=== PATIENT | female | born 1950 | race Caucasian/White ===

== ENCOUNTER → 2018-10-28 | Outpatient (CLI) | payer MEDICARE, BC ==
--- NOTE | 2018-11-01 09:54 | MM ---
Reason for exam: screening (asymptomatic). Last mammogram was performed 1 year and 3 months ago. History: Patient is postmenopausal. Physical Findings: A clinical breast exam by your physician is recommended on an annual basis and results should be correlated with mammographic findings. MG 3D Screening Mammo W/Cad Bilateral CC and MLO view(s) were taken. Prior study comparison: August 10, 2017, mammogram, performed at [facility]. October 02, 2016, mammogram, performed at [facility]. The breast tissue is heterogeneously dense. This may lower the sensitivity of mammography. There are benign appearing round calcifications bilaterally. There is no discrete abnormality. Left axillary pacemaker. ASSESSMENT: Benign, BI-RAD 2 RECOMMENDATION: Routine screening mammogram of both breasts in 1 year.
== END | disposition home or self-care (01) ==
LOC: RADMAMWWP 10:05
PROVIDERS: ATTEND Family Medicine
DX: Z12.31 Encounter for screening mammogram for malignant neoplasm of breast (principal)
CPT/HCPCS: 77063; 77067

== ENCOUNTER → 2019-12-21 | Outpatient (CLI) | payer MEDICARE, BC ==
--- NOTE | 2019-12-25 10:16 | MM ---
Reason for exam: screening (asymptomatic). Last mammogram was performed 1 year and 2 months ago. History: Patient is postmenopausal. Physical Findings: A clinical breast exam by your physician is recommended on an annual basis and results should be correlated with mammographic findings. MG 3D Screening Mammo W/Cad Bilateral CC and MLO view(s) were taken. XCCL view(s) were taken of the right breast. Prior study comparison: October 28, 2018, bilateral MG 3d screening mammo w/cad. August 10, 2017, mammogram, performed at [facility]. The breast tissue is heterogeneously dense. This may lower the sensitivity of mammography. Benign appearing bilateral calcifications. No significant changes when compared with prior studies. ASSESSMENT: Benign, BI-RAD 2 RECOMMENDATION: Routine screening mammogram of both breasts in 1 year.
== END | disposition home or self-care (01) ==
LOC: RADMAMWWP 12:31
PROVIDERS: ATTEND Family Medicine
DX: Z12.31 Encounter for screening mammogram for malignant neoplasm of breast (principal)
CPT/HCPCS: 77063; 77067

== ENCOUNTER 2020-06-09 01:42 | Emergency (ER) | payer MEDICARE, BC ==
[2020-06-09 01:48] VITALS: TEMP 98
[2020-06-09] MEDS ORDERED: diphenhydrAMINE 50 MG/ML 1 ML VIAL IVP STA (01:58)
[2020-06-09] MEDS ORDERED: methylPREDNISolone SOD SUCCI 125 MG/2 ML VIAL IV STA (01:58)
[2020-06-09] MEDS ORDERED: SODIUM CHLORIDE 0.9% 1,000 ML IV STA (01:58)
--- NOTE | 2020-06-09 02:03 | ED ---
ENT HPI - General Chief complaint: ENT Stated complaint: Swollen Tongue Time Seen by Provider: 06/09/20 01:55 Source: patient, RN notes reviewed Mode of arrival: ambulatory Limitations: no limitations - History of Present Illness Initial comments: Patient is a 69-year-old female that presents to the emergency department with tongue swelling. She notes that this happened after she woke up look in the mirrorher tongue was swollen. She noted that it is increasingly more difficult to talk and swallow. She notes that she can swallow her own saliva with some difficulty. She also does note that she does take lisinopril on a regular basis but has never had an ALLERGIC reaction or reaction up until this point. She was sitting up in bed in mild distress but did not appear to be in any pain. She was a well-appearing 69-year-old female. She denied any chest pain shortness of breath headache nausea vomiting diarrhea constipation fever fatigue chills. - Related Data Previous Rx's Medication Instructions Recorded Famotidine [Pepcid] 20 mg PO BID #28 tablet 06/09/20 predniSONE 50 mg PO DAILY #5 tab 06/09/20 Allergies Allergy/AdvReac Type Severity Reaction Status Date / Time morphine Allergy Unknown Verified 06/09/20 01:48 Penicillins Allergy Unknown Verified 06/09/20 01:48 Review of Systems ROS Statement: Those systems with pertinent positive or pertinent negative responses have been documented in the HPI. ROS Other: All systems not noted in ROS Statement are negative. Past Medical History Past Medical History: Hypertension, Thyroid Disorder Additional Past Medical History / Comment(s): Tremors History of Any Multi-Drug Resistant Organisms: None Reported Additional Past Surgical History / Comment(s): Impplants in head for tremors. Past Psychological History: No Psychological Hx Reported Smoking Status: Never smoker Past Alcohol Use History: None Reported Past Drug Use History: None Reported General Exam Limitations: no limitations General appearance: alert, in no apparent distress Head exam: Present: atraumatic, normocephalic, normal inspection Eye exam: Present: normal appearance, PERRL, EOMI. Absent: scleral icterus, conjunctival injection, periorbital swelling ENT exam: Present: mucous membranes moist. Absent: normal exam (Inferior aspect of tongue around the lingual frenulum swollen.) Neck exam: Present: normal inspection. Absent: tenderness, meningismus, lymphadenopathy Respiratory exam: Present: normal lung sounds bilaterally. Absent: respiratory distress, wheezes, rales, rhonchi, stridor Cardiovascular Exam: Present: regular rate, normal rhythm, normal heart sounds. Absent: systolic murmur, diastolic murmur, rubs, gallop, clicks GI/Abdominal exam: Present: soft, normal bowel sounds. Absent: distended, tenderness, guarding, rebound, rigid Extremities exam: Present: normal inspection, full ROM, normal capillary refill. Absent: tenderness, pedal edema, joint swelling, calf tenderness Neurological exam: Present: alert, oriented X3, CN II-XII intact Psychiatric exam: Present: normal affect, normal mood Skin exam: Present: warm, dry, intact, normal color. Absent: rash Course Vital Signs 06/09/20 01:46 Temperature 98 F Pulse Rate 102 H Respiratory 18 Rate O2 Sat by Pulse 95 Oximetry Medical Decision Making - Medical Decision Making 59-year-old female complaining of tongue swelling. Labs, 50 g Benadryl, 125 mg of Solu-Medrol, 0.3 mg epinephrine, 1 L normal saline ordered. Labs unremarkable Upon reevaluation patient states that she is feeling much better having an easier time swallowing and feels like her tongue his head reduce swelling. case discussed with Dr. Islas, patient discharge home. - Lab Data Result diagrams: 06/09/20 02:19 06/09/20 02:19 Lab Results 06/09/20 06/09/20 Range/Units 02:19 02:19 WBC 8.8 (3.8-10.6) k/uL RBC 3.96 (3.80-5.40) m/uL Hgb 11.9 (11.4-16.0) gm/dL Hct 36.7 (34.0-46.0) % MCV 92.7 (80.0-100.0) fL MCH 30.0 (25.0-35.0) pg MCHC 32.4 (31.0-37.0) g/dL RDW 13.5 (11.5-15.5) % Plt Count 93 L (150-450) k/uL MPV 13.3 Neutrophils % 56 % Lymphocytes % 33 % Monocytes % 5 % Eosinophils % 3 % Basophils % 1 % Neutrophils # 4.9 (1.3-7.7) k/uL Lymphocytes # 2.9 (1.0-4.8) k/uL Monocytes # 0.4 (0-1.0) k/uL Eosinophils # 0.3 (0-0.7) k/uL Basophils # 0.1 (0-0.2) k/uL Sodium 141 (137-145) mmol/L Potassium 3.9 (3.5-5.1) mmol/L Chloride 106 (98-107) mmol/L Carbon Dioxide 28 (22-30) mmol/L Anion Gap 7 mmol/L BUN 22 H (7-17) mg/dL Creatinine 0.88 (0.52-1.04) mg/dL Est GFR (CKD-EPI)AfAm 78 (>60 ml/min/1.73 sqM) Est GFR (CKD-EPI)NonAf 68 (>60 ml/min/1.73 sqM) Glucose 108 H (74-99) mg/dL Calcium 8.7 (8.4-10.2) mg/dL Disposition Clinical Impression: Allergic reaction, Tongue swelling Disposition: HOME SELF-CARE Condition: Stable Instructions (If sedation given, give patient instructions): General Allergic Reaction (ED), Angioedema (ED) Additional Instructions: Please return to the Emergency Department if symptoms worsen or any other concerns. Take prescriptions as prescribed. Follow-up with primary care in 1-2 days discuss potentially changing blood pressure medication. Eat and drink as tolerated until swelling reduces. Is patient prescribed a controlled substance at d/c from ED?: No Referrals: Iveth Ruiz DO [Primary Care Provider] - 1-2 days Time of Disposition: 02:57
[2020-06-09 02:36] LABS: Basophils # (A) 0.1 k/uL (0-0.2); Basophils % (A) 1 %; Eosinophils # (A) 0.3 k/uL (0-0.7); Eosinophils % (A) 3 %; HCT 36.7 % (34.0-46.0); HGB 11.9 gm/dL (11.4-16.0); Lymphocytes # (A) 2.9 k/uL (1.0-4.8); Lymphocytes % (A) 33 %; MCHC 32.4 g/dL (31.0-37.0); MCV 92.7 fL (80.0-100.0); Mean Platelet Volume 13.3; Monocytes # (A) 0.4 k/uL (0-1.0); Monocytes % (A) 5 %; Neutrophils # (A) 4.9 k/uL (1.3-7.7); Neutrophils % (A) 56 %; RBC 3.96 m/uL (3.80-5.40); RDW 13.5 % (11.5-15.5); WBC 8.8 k/uL (3.8-10.6)
[2020-06-09 02:38] LABS: Platelet Count 93 k/uL (150-450)
[2020-06-09 02:48] LABS: Calcium 8.7 mg/dL (8.4-10.2); Potassium 3.9 mmol/L (3.5-5.1)
[2020-06-09 03:29] VITALS: BP 148/91; PULSE 75; RESP 20
== END 2020-06-09 03:10 | disposition home or self-care (01) ==
LOC: EC 01:42
DX: T78.40XA Allergy, unspecified, initial encounter (principal); T46.4X5A Adverse effect of angiotensin-converting-enzyme inhibitors, initial encounter; I10 Essential (primary) hypertension
CPT/HCPCS: 36415; 80048; 85025; 99283; 96374; 96375; 96372; J0171; J1200; J2930; 96365

== ENCOUNTER 2022-06-30 09:05 | Day surgery (SDC) | payer MEDICARE ==
[~2022-06-30 09:05] MED LIST: LACTATED RINGERS 1,000 ML IV SCH; LIDOCAINE 1% (10MG/ML) FOR IV START INTRADERMA PRN
[2022-06-30 09:42] VITALS: TEMP 97.1
[2022-06-30] MEDS ORDERED: PROPOFOL 10 MG/ML 20 ML VIAL IV ONE (10:23)
[2022-06-30] MEDS ORDERED: LIDOCAINE 2% INJ 20 MG/ML (2 ML VIAL) ONE (10:23)
--- NOTE | 2022-06-30 10:38 | P.PCN ---
Date of Procedure: 06/30/22 Procedure(s) Performed: BRIEF HISTORY: Patient is a 71-year-old, pleasant, female scheduled for an upper endoscopy as a part of evaluation of dysphagia for the last 4 months duration.. She started the symptoms for the last 4 months after she received Botox in the neck in January [address] Waterman for head and tremors. She did have modified barium swallow done 3 months ago that revealed: Of the barium and the valvular and some aspiration with thin liquids. PROCEDURE PERFORMED: Esophagogastroduodenoscopy. PREOPERATIVE DIAGNOSIS: Dysphagia to solids for the last 3-4 months duration. IV sedation per anesthesia. PROCEDURE: After informed consent was obtained, the patient was brought into the endoscopy unit. IV sedation was administered by Anesthesia under continuous monitoring. Initially the Olympus GIF-140 video endoscope was inserted into the mouth. Esophagus intubated without any difficulty. It was gradually advanced into the stomach and duodenum and carefully examined. The bulb and the second part of the duodenum appeared normal. The scope at this time was withdrawn to the stomach, adequately insufflated with air, and upon careful examination, mucosa of the antrum, body, cardia and the fundus appeared normal. The scope was then withdrawn into the esophagus. Small hiatal hernia noted. The GE junction was located at 39 cm from the incisors. The esophagus appeared normal. There were no erosions or ulcerations seen . The proximal cervical esophagus was carefully examined and there was no evidence of Zenker's diverticulum or esophageal stricture identified. The patient tolerated the procedure well. IMPRESSION: 1. Normal-appearing proximal cervical esophagus with no evidence of esophageal stricture or Zenker's diverticulum. 2. Small hiatal hernia. RECOMMENDATIONS: The findings of this examination were discussed with the patient as well as her family. She was advised to be on a soft diet if she has worsening symptoms she was advised to follow up in office for further management.
[2022-06-30 10:46] VITALS: RESP 16
[2022-06-30 10:58] VITALS: BP 149/79; PULSE 78
== END 2022-06-30 11:12 | disposition home or self-care (01) ==
LOC: ORWHC2ENDO 09:05
PROVIDERS: ATTEND Internal Medicine Gastroenterology
DX: K44.9 Diaphragmatic hernia without obstruction or gangrene (principal); K21.9 Gastro-esophageal reflux disease without esophagitis; I10 Essential (primary) hypertension; E03.9 Hypothyroidism, unspecified; Z79.890 Hormone replacement therapy; Z79.899 Other long term (current) drug therapy; Z86.73 Personal history of transient ischemic attack (TIA), and cerebral infarction without residual deficits; Z88.0 Allergy status to penicillin; Z88.5 Allergy status to narcotic agent
CPT/HCPCS: 43235; J2704; J2001